=== PATIENT | female | born 1980 | race American Indian/Alaskan Native ===

== ENCOUNTER 2017-12-30 19:13 | Emergency (ER) | payer MEDICAID ==
[2017-12-30 19:46] VITALS: BP 113/77
[2017-12-30 21:45] LABS: Bilirubin,Urine NEG (Negative); Blood,Urine NEG (Negative); Color,Urine Yellow (Yellow); HCG Qualitative,Urine Negative (Negative); Mucus,Urine FEW /HPF; Protein,Urine <15 mg/dL mg/dL (Negative); Urobilinogen,Urine < 2.0 mg/dL (<2.0)
--- NOTE | 2017-12-30 22:16 | Emergency Department Report ---
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 Patient reports that when she lifts her patient patient braced herself and refused to be moved patient felt her back pull. Patient has not taken any pain medication for back. She reports she was able to work out today. Back pain is intermittent and achy. She also complains of vaginal discharge and denies any vaginal odor or discomfort on urination. Patient's past medical history of a needlestick packet 2015 she was on, therefore 3 days. She no longer takes. -: days(s) (few) Location: back Severity scale (0 -10): 8 Quality: aching Consistency: intermittent Improves with: none Worsens with: movement Associated Symptoms: denies other symptoms (but was able to exercise and do a sit up this morning without any discomfort) Treatments Prior to Arrival: none - Related Data Previous Rx's Medication Instructions Recorded Last Taken Type HYDROcodone/APAP 10-325 [Ocate 1 each PO Q6HR PRN #20 tablet 12/23/13 Unknown Rx 10-325 mg TAB] Amoxicillin/K Clav Tab [Augmentin 1 tab PO BID #20 tablet 10/19/14 Unknown Rx 875MG] lamiVUDine/ZIDOVUDINE (NF) 1 each PO BID #6 tablet 10/19/14 Unknown Rx [Combivir 150/300Mg] Naproxen [Naprosyn] 500 mg PO BID #20 tablet 12/30/17 Unknown Rx Cyclobenzaprine HCl [Flexeril 5 MG 5 mg PO TID #15 tab 12/31/17 Unknown Rx TAB] Allergies Allergy/AdvReac Type Severity Reaction Status Date / Time No Known Allergies Allergy Unverified 12/23/13 13:31 ED Review of Systems ROS: Stated complaint: VAG DISCHARGE, BACK PAIN Other details as noted in HPI Constitutional: denies: chills, fever Eyes: denies: eye pain, eye discharge, vision change ENT: denies: ear pain, throat pain Respiratory: denies: cough, shortness of breath, wheezing Cardiovascular: denies: chest pain, palpitations Endocrine: no symptoms reported Gastrointestinal: denies: abdominal pain, nausea, diarrhea Genitourinary: discharge (vaginal discharge without odor denies any itchiness). denies: urgency, dysuria Musculoskeletal: back pain Skin: denies: rash, lesions Neurological: denies: headache, weakness, paresthesias Psychiatric: denies: anxiety, depression Hematological/Lymphatic: denies: easy bleeding, easy bruising ED Past Medical Hx - Past Medical History Previous Medical History?: No - Surgical History Past Surgical History?: Yes Additional Surgical History: 2 C-sections - Social History Smoking Status: Former Smoker - Medications Home Medications: Home Medications Medication Instructions Recorded Confirmed Last Taken Type HYDROcodone/APAP 10-325 [Ocate 1 each PO Q6HR PRN #20 tablet 12/23/13 Unknown Rx 10-325 mg TAB] Amoxicillin/K Clav Tab [Augmentin 1 tab PO BID #20 tablet 10/19/14 Unknown Rx 875MG] lamiVUDine/ZIDOVUDINE (NF) 1 each PO BID #6 tablet 10/19/14 Unknown Rx [Combivir 150/300Mg] Naproxen [Naprosyn] 500 mg PO BID #20 tablet 12/30/17 Unknown Rx Cyclobenzaprine HCl [Flexeril 5 MG 5 mg PO TID #15 tab 12/31/17 Unknown Rx TAB] ED Physical Exam - General Limitations: No Limitations General appearance: alert, in no apparent distress - Head Head exam: Present: atraumatic, normocephalic - Eye Eye exam: Present: normal appearance - ENT ENT exam: Present: mucous membranes moist - Neck Neck exam: Present: normal inspection - Back Exam Back exam: Present: normal inspection, full ROM. Absent: tenderness, muscle spasm - Neurological Exam Neurological exam: Present: alert, oriented X3 - Psychiatric Psychiatric exam: Present: normal affect, normal mood - Skin Skin exam: Present: warm, dry, intact, normal color. Absent: rash ED Course Vital Signs 12/30/17 19:40 Temperature 98.7 F Pulse Rate 89 Respiratory 18 Rate Blood Pressure 113/77 O2 Sat by Pulse 100 Oximetry ED Medical Decision Making - Medical Decision Making 37-year-old [place] female comes in for chronic back pain. 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 Patient has not tried any pain medication for her pain. Patient's urinalysis and test was negative. Discussed the patient she should follow up with [facility] where she just had her Pap smear done. I would discharge patient on naproxen 500 mg twice a day. Critical care attestation.: If time is entered above; I have spent that time in minutes in the direct care of this critically ill patient, excluding procedure time. ED Disposition Clinical Impression: Low back strain Qualifiers: Encounter type: initial encounter Qualified Code(s): S39.012A - Strain of muscle, fascia and tendon of lower back, initial encounter Disposition: TO HOME OR SELFCARE Is pt being admited?: No Does the pt Need Aspirin: No Condition: Stable Additional Instructions: Please is taking pain medication as prescribed. Please follow-up with [facility] for evaluation of vaginal discharge. Prescriptions: Cyclobenzaprine HCl [Flexeril 5 MG TAB] 5 mg PO TID #15 tab Naproxen [Naprosyn] 500 mg PO BID #20 tablet Referrals: [facility] [Primary Care Provider] - 3-5 Days [facility] [Provider Group] - 3-5 Days Forms: Work/School Release Form(ED)
[2017-12-30] MEDS ORDERED: MOTRIN PO ONE (22:19)
[2017-12-30] MEDS ORDERED: TORADOL IM ONE (22:22)
== END 2017-12-31 00:20 | disposition home or self-care (01) ==
LOC: ED 19:13
DX: S39.012A Strain of muscle, fascia and tendon of lower back, initial encounter (principal); N89.8 Other specified noninflammatory disorders of vagina; Z87.891 Personal history of nicotine dependence; X50.9XXA Other and unspecified overexertion or strenuous movements or postures, initial encounter; Y93.89 Activity, other specified; Y99.8 Other external cause status; Y92.098 Other place in other non-institutional residence as the place of occurrence of the external cause
CPT/HCPCS: 81001; 81025; 96372; 99283; J1885